=== PATIENT | male | born 1965 | race Caucasian/White ===

== ENCOUNTER 2017-07-12 07:58 | Inpatient (IN) | payer OTHER ==
[~2017-07-12] VITALS: Ht 188 cm; Wt 146.1 kg
[2017-07-12] MEDS ORDERED: MORPHINE SULFATE 2 MG/ML SYR IV STA (08:33)
[2017-07-12] MEDS ORDERED: ONDANSETRON HCL INJ 2 MG/ML VIAL IV STA (08:33)
[2017-07-12] MEDS ORDERED: SODIUM CHLORIDE 0.9% 1000ML 1,000 ML IV STA (08:33)
[2017-07-12] MEDS ORDERED: VANCOMYCIN 1GM/NS 250 ML 250 ML IV STA (08:33)
[2017-07-12] MEDS ORDERED: PIPER-TAZ 3.375 GM 50 ML IV STA (08:33)
--- NOTE | 2017-07-12 08:59 | Diagnostic Imaging Report ---
PROCEDURE: CHEST SINGLE (PORTABLE) COMPARISON: None. INDICATIONS: ABCESS ON BUTTOCKS FINDINGS: The lungs are well-inflated. No focal airspace consolidation, pleural effusion, or pneumothorax. Cardiomediastinal contour is within normal limits when accounting for portable, AP technique. No acute osseous abnormality. CONCLUSION: No acute cardiopulmonary abnormality. Dictated by: Denilson Aguirre M.D. on 07/12/2017 at 9:09 Electronically approved by: Denilson Aguirre M.D. on 07/12/2017 at 9:09
[2017-07-12 09:50] LABS: BASOPHILS # (AUTO) 0.1 (0.0-0.1); BASOPHILS % 0.6 % (0.0-1.0); EOSINOPHILS # (AUTO) 0.4 (0.0-0.4); HEMATOCRIT 38.4 % (38.2-49.6); HEMOGLOBIN 12.2 g/dL (14.0-18.0); LYMPHOCYTES # (AUTO) 1.4 (1.0-3.2); LYMPHOCYTES % 15.3 % (18.0-39.1); MEAN CORPUSCULAR HEMOGLOBIN 27.4 pg (28-32); MEAN CORPUSCULAR HGB CONC 31.8 g/dL (31-35); MEAN CORPUSCULAR VOLUME 86.1 fL (81-99); MONOCYTES # (AUTO) 0.9 (0.2-0.8); MONOCYTES % 9.7 % (4.4-11.3); NEUTROPHILS # (AUTO) 6.2 (2.1-6.9); NEUTROPHILS % 69.3 % (38.7-80.0); PLATELET COUNT 228 x10e3/uL (140-360); RED BLOOD COUNT 4.46 x10e6/uL (4.3-5.7); RED CELL DISTRIBUTION WIDTH 13.2 % (11.7-14.4)
[2017-07-12 09:53] LABS: INR 0.96; PROTHROMBIN TIME 13.3 seconds (11.9-14.5)
[2017-07-12 09:56] LABS: KETONES,URINE NEGATIVE (NEGATIVE); LEUKOCYTE ESTERASE ,URINE NEGATIVE (NEGATIVE); NITRITE,URINE NEGATIVE (NEGATIVE); PROTEIN,URINE DIPSTICK NEGATIVE (NEGATIVE); URINE UROBILINOGEN 0.2 mg/dL (0.2 - 1)
[2017-07-12 09:59] LABS: ALANINE AMINOTRANSFERASE 15 IU/L (0-55); ALBUMIN 2.9 g/dL (3.5-5.0); ALBUMIN/GLOBULIN RATIO 0.7 (0.8-2.0); ALKALINE PHOSPHATASE 60 IU/L (40-150); ANION GAP 10.9 mmol/L (8-16); BLOOD UREA NITROGEN 13 mg/dL (7-26); BUN/CREATININE RATIO 13 (6-25); CARBON DIOXIDE 25 mmol/L (22-29); CHLORIDE 106 mmol/L (98-107); CREATINE KINASE 77 IU/L (30-200); CREATININE, SERUM 0.97 mg/dL (0.72-1.25); EST GLOMERULAR FILTRATION RATE > 60 ML/MIN (60-); GLUCOSE 108 mg/dL (74-118); MAGNESIUM 1.6 MG/DL (1.3-2.1); POTASSIUM 3.9 mmol/L (3.5-5.1); SODIUM 138 mmol/L (136-145)
[2017-07-12 10:05] LABS: BILIRUBIN,URINE 1+ (NEGATIVE)
[2017-07-12] MEDS ORDERED: SODIUM CHLORIDE 0.9% 1000ML 1,000 ML IV SCH (10:10)
--- NOTE | 2017-07-12 10:22 | History and Physical ---
CHIEF COMPLAINT: Perianal pain. HISTORY OF PRESENT ILLNESS: This patient is 326 pounds and 74 inches with a BMI of 42, obese male admitted with a perirectal abscess complaining of pain and swelling of the perirectal area. The patient has a history of incision and drainage of perirectal abscess in the past and had at least 3 recurrences. PAST MEDICAL HISTORY: Has no history of hypertension, diabetes, epileptic convulsions, coronary artery disease, etc. PAST SURGICAL HISTORY: Remarkable for what has been stated. MEDICATIONS: He is not taking any medicines. ALLERGIES: HE HAS NO ALLERGIES. SOCIAL HISTORY: He does not smoke or drink. FAMILY HISTORY: Noncontributory. PHYSICAL EXAMINATION GENERAL: A 52-year-old male in mild distress complaining of perianal pain. He has some difficulties rolling over. HEENT: Unremarkable. The head is normocephalic. LUNGS: Clear. HEART: Regular sinus rhythm. ABDOMEN: Soft. RECTAL: Perirectal examination reveals tender, swollen inflammation in the perirectal area located at 5 o'clock with the patient in the prone position. There is some fluctuance there. There is an old healed scar. Full rectal examination was not done because of the severe pain. EXTREMITIES: No clubbing, cyanosis or edema. IMPRESSION: Recurrent perirectal abscess. PLAN: Rectal examination under anesthesia, incision and drainage of perirectal abscess, possible fistulotomy. Job#: [id number]
[2017-07-12 10:27] LABS: CLARITY,URINE CLEAR (CLEAR); COLOR,URINE YELLOW (YELLOW); EPITHELIAL CELLS,URINE RARE /LPF
[2017-07-12] MEDS ORDERED: ONDANSETRON HCL INJ 2 MG/ML VIAL IV PRN (10:30)
--- OUTSIDE RECORDS SUMMARY | 2017-07-12 10:39 | XMS REPORT ---
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 Allergies, Adverse Reactions, Alerts This patient has no known allergies or adverse reactions. Medications This patient has no known medications. Results Test Description Test Time Test Comments Text Results Atomic Results Result Comments CHEST SINGLE (PORTABLE) [place] [address] Patient Name: RENAY LUZ MR #: [id number] : 1965 Age/Sex: 52/M Req #: [id number] Adm Physician: Ordered by: ÁNGEL HDEZ MD Report #: [id number] Location: ER Room/Bed: Procedure: [id number] DX/CHEST SINGLE (PORTABLE) Exam Date: 07/12/17 Exam Time: 0845 REPORT STATUS: Signed PROCEDURE: CHEST SINGLE (PORTABLE) COMPARISON: None. INDICATIONS: ABCESS ON BUTTOCKS FINDINGS: The lungs are well-inflated. No focal airspace consolidation, pleural effusion, or pneumothorax. Cardiomediastinal contour is within normal limits when accounting for portable, AP technique. No acute osseous abnormality. CONCLUSION: No acute cardiopulmonary abnormality. Dictated by: Omayra Mcqueen M.D. on 07/12/2017 at 9:09 Electronically approved by: Omayra Mcqueen M.D. on 07/12/2017 at 9:09 Dictated By: OMAYRA MCQUEEN MD 8 Transcribed By: ERICKSON on 07/12/17908 COPY TO: ÁNGEL HDEZ MD
[2017-07-12 12:17] VITALS: BP 128/73
[2017-07-12 12:30] VITALS: BP 128/73
[2017-07-12] MEDS ORDERED: LIDOCAINE JELLY 2% 10ML URO-JET ONE (12:58)
[2017-07-12] MEDS ORDERED: HYDROGEN PEROXIDE 120 ML BTL ONE (12:59)
[2017-07-12] MEDS ORDERED: GELATIN SPONGE SZ 100 ONE (12:59)
[2017-07-12] MEDS ORDERED: METRONIDAZOLE 500MG/NS 100ML 200 ML IV ONE (14:22)
[2017-07-12 16:00] VITALS: BP 147/85
--- NOTE | 2017-07-12 16:45 | Operative Report ---
DATE OF PROCEDURE: July 12, 2017 PREOPERATIVE DIAGNOSIS: Recurrent perirectal abscess. POSTOPERATIVE DIAGNOSIS: Recurrent perirectal abscess. POSTOPERATIVE DIAGNOSIS: 1. Rectal examination under anesthesia. 2. Anoscopy. 3. Incision and drainage of perirectal abscess, recurrent. 4. Fistulotomy. ANESTHESIA: General endotracheal. ESTIMATED BLOOD LOSS: Minimal. DRAINS: None. COMPLICATIONS: None. INDICATIONS AND FINDINGS: This is a 325 pound, 74 inch male patient with a BMI of 41 admitted with perirectal abscess. The patient had several years ago incision and drainage of perirectal abscess and has had several recurrent bouts of infection. He was admitted on the day of admission from the emergency room with a perirectal abscess. INTRAOPERATIVE FINDINGS: The patient was in the lithotomy position and perirectal abscess located about the 10 o'clock position. There was a tract that was erected posteriorly in the intrasphincteric plane towards the midline with an internal opening that was located about 6 to 7 o'clock position. DESCRIPTION OF PROCEDURE: With the patient lying on the operative table in the supine position after administration of general anesthesia, he was prepped and draped for incision and drainage of perirectal abscess and possible fistulotomy. Prior to the prep rectal examination was performed and revealed no masses. After prepping and draping him, the perirectal abscess was located 10 o'clock position. The skin overlying perirectal abscess was excised in a circular fashion about the area of a dime. Cultures and sensitivities were taken of foul smelling pus with some blood. We went ahead at this point and identified a fistula tract that was followed up into the anal canal, the distal to the dentate line around 6 o'clock to 7 o'clock position. At this point, we went ahead and laid the tract open and cauterized the tract to destroy all the granulation tissue. The more posterior part of the tract was then over run with running 2-0 Vicryl because there was a large hemorrhoid in that area. After obtaining that hemostasis was absolute, the cavity was then irrigated with saline solution and packed with Gelfoam containing Xylocaine jelly 2%. The patient tolerated the procedure well and was taken to recovery room in stable condition. The was informed of intraoperative findings. They were both aware of the fact that this type of problem can always recur. Job#: [id number] GH
[2017-07-12] MEDS: HYDROCODONE/APAP 7.5MG-325MG 1 EA TAB PO PRN (17:10)
[2017-07-12] MEDS: PIPER-TAZ 3.375 GM 50 ML IV SCH (17:24)
[2017-07-12] MEDS: SODIUM CHLORIDE 0.9% 1000ML 1,000 ML IV SCH (17:24)
[2017-07-12] MEDS ORDERED: ONDANSETRON HCL INJ 2 MG/ML VIAL ONE (17:28)
[2017-07-12] MEDS ORDERED: PROPOFOL IV EMULSION 10 MG/ML 20 ML VIAL ONE (17:28)
[2017-07-12] MEDS ORDERED: DEXAMETHASONE SOD PHOS INJ 4 MG/ML VIAL ONE (17:28)
[2017-07-12] MEDS ORDERED: SEVOFLURANE INHAL SOLN 250 ML PEN BTL ONE (17:28)
[2017-07-12] MEDS ORDERED: LIDOCAINE HCL 2% LOCAL INJ 5 ML SDV VIAL INJ ONE (17:28)
[2017-07-12] MEDS ORDERED: MIDAZOLAM HCL 2 MG/2 ML VIAL ONE (17:47)
[2017-07-12] MEDS ORDERED: FENTANYL CITRATE/PF 100MCG/2 ML INJ ONE (17:47)
[2017-07-12] MEDS ORDERED: METRONIDAZOLE 500MG/NS 100ML 100 ML IV SCH (18:00)
[2017-07-12 18:07] VITALS: BP 147/85
[2017-07-12 20:00] VITALS: BP 141/69
[2017-07-12] MEDS: METRONIDAZOLE 500MG/NS 100ML 100 ML IV SCH (21:07)
[2017-07-12] MEDS: MORPHINE SULFATE 2 MG/ML SYR IV PRN (21:19)
[2017-07-13] VITALS (7 sets, daily range): BP systolic 100–117; BP diastolic 55–99
[2017-07-13] MEDS: PIPER-TAZ 3.375 GM 50 ML IV SCH ×4 (00:30→18:48)
[2017-07-13] MEDS: METRONIDAZOLE 500MG/NS 100ML 100 ML IV SCH ×4 (02:48→20:59)
[2017-07-13] MEDS: SODIUM CHLORIDE 0.9% 1000ML 1,000 ML IV SCH ×3 (05:00→21:00)
[2017-07-13] MEDS: HYDROCODONE/APAP 7.5MG-325MG 1 EA TAB PO PRN ×3 (05:51→15:40)
[2017-07-13] MEDS: MORPHINE SULFATE 2 MG/ML SYR IV PRN (22:38)
[2017-07-14] VITALS (7 sets, daily range): BP systolic 109–139; BP diastolic 56–84
[2017-07-14] MEDS: PIPER-TAZ 3.375 GM 50 ML IV SCH ×4 (00:27→17:20)
[2017-07-14] MEDS: SODIUM CHLORIDE 0.9% 1000ML 1,000 ML IV SCH ×2 (00:32→17:00)
[2017-07-14] MEDS: METRONIDAZOLE 500MG/NS 100ML 100 ML IV SCH ×4 (03:29→21:30)
[2017-07-14] MEDS: ONDANSETRON HCL INJ 2 MG/ML VIAL IV PRN ×2 (11:59→21:30)
[2017-07-14] MEDS ORDERED: DIPHENOXYLATE/ATROPINE TAB PO ONE (14:30)
[2017-07-14] MEDS: HYDROCODONE/APAP 7.5MG-325MG 1 EA TAB PO PRN ×2 (17:20→23:12)
[2017-07-14] MEDS: DIPHENOXYLATE/ATROPINE TAB PO SCH ×2 (17:20→21:30)
[2017-07-15] VITALS: BP 139/73
[2017-07-15] MEDS: PIPER-TAZ 3.375 GM 50 ML IV SCH ×3 (00:45→11:38)
[2017-07-15] MEDS: DIPHENOXYLATE/ATROPINE TAB PO SCH ×3 (02:39→09:49)
[2017-07-15] MEDS: METRONIDAZOLE 500MG/NS 100ML 100 ML IV SCH ×2 (02:40→08:17)
[2017-07-15] MEDS: SODIUM CHLORIDE 0.9% 1000ML 1,000 ML IV SCH (03:00)
[2017-07-15 04:00] VITALS: BP_SYST 102; BP_SYST 126; BP_DIAS 56; BP_DIAS 59
[2017-07-15 08:00] VITALS: BP 107/62
[2017-07-15] MEDS: ONDANSETRON HCL INJ 2 MG/ML VIAL IV PRN (08:17)
[2017-07-15 12:00] VITALS: BP 115/67
--- NOTE | 2017-07-15 12:48 | Discharge Summary ---
DISCHARGE DIAGNOSIS: Recurrent perirectal abscess. PROCEDURE PERFORMED: On July 12, 2017, incision and drainage of perirectal abscess. HISTORY OF PRESENT ILLNESS AND HOSPITALIZATION COURSE: A 326-pound 74-inch male who had a history of recurrent perirectal abscess admitted with a recurrence of perirectal abscess. The patient was taken to the operating room the day of admission and underwent incision and drainage of perirectal abscess with a fistulotomy. See operative report for greater details. Postoperative course was unremarkable. The patient was given intravenous antibiotics until the day of discharge. He was discharged home in afebrile and stable condition. The patient will be discharged home on Augmentin 500 mg p.o. t.i.d. for a week. He will be followed up at the office as an outpatient. The patient will be referred to GI once this wound has healed, to rule out the possibility of inflammatory bowel disease given his history of diarrhea in the past. He was advised to avoid excessive loose bowel movements and diarrhea and take Imodium A-D p.r.n. to solidify his stools. MARCO A MUSTAFA MD Job#: [id number] EV
== END 2017-07-15 13:00 | disposition home or self-care (01) | DRG 333 ==
LOC: ER 07:58 → ERHOLD 10:36 → IMCU 11:41 → OBSVTOIN 15:00 → MED/SURG2 15:55
PROVIDERS: ADMIT Surgery; ATTEND Surgery
PROC: 0DBP0ZZ Excision of Rectum, Open Approach (ICD-10-PCS; 2017-07-12)
PROC: 0DBQ0ZZ Excision of Anus, Open Approach (ICD-10-PCS; principal; 2017-07-12 12:30)
DX: K61.2 Anorectal abscess (principal); Z68.41 Body mass index [BMI] 40.0-44.9, adult; I10 Essential (primary) hypertension; K64.9 Unspecified hemorrhoids; E11.9 Type 2 diabetes mellitus without complications; Z79.4 Long term (current) use of insulin; G40.909 Epilepsy, unspecified, not intractable, without status epilepticus; I25.10 Atherosclerotic heart disease of native coronary artery without angina pectoris; E66.9 Obesity, unspecified
CPT/HCPCS: 36415; 71045; 72170; 80053; 81001; 82550; 82553; 82948; 83735; 84484; 85025; 85610; 85730; 87040; 87071; 87075; 87086; 87186; 87205; 93005; 99284; J1100; J2001; J2250; J2270; J2405; J2543; J3370; J7030

== ENCOUNTER 2017-10-08 20:21 | Emergency (ER) | payer OTHER ==
[~2017-10-08] VITALS: Ht 188 cm; Wt 146.1 kg
--- OUTSIDE RECORDS SUMMARY | 2017-10-08 20:22 | XMS REPORT | Continuity of Care Document ---
Author Author [facility] Organization [facility] Address [address] [place] [address] Phone Unavailable Care Team Providers Care Header Dock Name Role Phone NO, PCP PCP Unavailable Insurance Providers Guarantor Renay Luz Address [address] [place] [address] Email [email or web address] Payer [employer] Policy Number [id number] Subscriber's Name SantiagoRenay arreola Relationship 18 Self / Same As Patient Group Number [id number] Group Name [employer] Effective Date 17 Advance Directives Directive Response Recorded Date/Time Does the patient have an advance directive? No 07/12/17 12:17pm If yes, is advance directive on file with [facility]? No 07/12/17 12:17pm If not on file with [facility] will patient provide a copy? No 07/12/17 12:17pm Do you have a Directive to Physician? No 07/12/17 9:06am Do you have a Medical Power of Certification Engineer? No 07/12/17 9:06am Do you have an out of hospital Do Not Resuscitate Order? No 07/12/17 9:06am Do you have any special needs we should be aware of? No 07/12/17 9:06am Do you have a support person here with you today? Yes 07/12/17 9:06am Did patient receive Notice of Privacy Practices? Yes 07/12/17 9:06am Did patient receive patient rights and responsibilities? Yes 07/12/17 9:06am Problems Medical Problem Onset Date Status Perirectal abscess Unknown Medications No known medications. Social History Social History Problem Response Recorded Date/Time Onset Date Status Hx Psychiatric Problems No 07/12/2017 12:17pm Not Applicable Not Applicable Smoking Status Start Date Stop Date Former smoker Hospital Discharge Instructions No hospital discharge instruction information available. Plan of Care Discharge Date 07/15/17 1:00pm Disposition HOME, SELF-CARE Instructions/Education Provided Skin Abscess Rash - Nonspecific Prescriptions See Medication Section Additional Instructions/Education CONTINUE DIET AND ACTIVITY TOLERATED FOLLOW UP WITH PRIMARY CARE IN 1-2 WEEKS FOLLOW UP WITH INSTRUCTED LISSETH ROSS Functional Status Query Response Date Recorded Assistive Devices None July 12, 2017 12:17pm Ambulation Ability Independent July 12, 2017 12:17pm Toileting Ability Independent July 15, 2017 12:00pm Allergies, Adverse Reactions, Alerts No known allergies. Immunizations No immunization information available. Vital Signs Acute Vital Signs Vital Response Date/Time Temperature (Fahrenheit) 97.4 degrees F (97.6 - 99.5) 07/15/2017 12:00pm Pulse Pulse Rate (adult) 61 bpm (60 - 90) 07/15/2017 12:00pm Respiratory Rate 20 bpm (12 - 24) 07/15/2017 12:00pm Blood Pressure 115/67 mm Hg 07/15/2017 12:00pm Height 6 ft 2 in 07/12/2017 8:08am Weight 322 lb 07/12/2017 12:17pm Body Mass Index 41.3 kg/m^2 07/12/2017 12:31pm Results Laboratory Results Test Name Result Units Flags Reference Collection Date/Time Result Date/ Time Comments White Blood Count 8.95 x10e3/uL 4.8-10.8 07/12/2017 9:10am 07/12/2017 9 :53am Red Blood Count 4.46 x10e6/uL 4.3-5.7 07/12/2017 9:10am 07/12/2017 9: 53am Hemoglobin 12.2 g/dL L 14.0-18.0 07/12/2017 9:07/12/2017 9:53am Hematocrit 38.4 % 38.2-49.6 07/12/2017 9:07/12/2017 9:53am Mean Corpuscular Volume 86.1 fL 81-99 07/12/2017 9:07/12/2017 9: 53am Mean Corpuscular Hemoglobin 27.4 pg L 28-32 07/12/2017 9:2017 9:53am Mean Corpuscular Hemoglobin Concent 31.8 g/dL 31-35 07/12/2017 9:07/12/2017 9:53am Red Cell Distribution Width 13.2 % 11.7-14.4 07/12/2017 9:2017 9:53am Platelet Count 228 x10e3/uL 140-360 07/12/2017 9:07/12/2017 9: 53am Neutrophils (%) (Auto) 69.3 % 38.7-80.0 07/12/2017 9:07/12/2017 9: 53am Lymphocytes (%) (Auto) 15.3 % L 18.0-39.1 07/12/2017 9:07/12/2017 9 :53am Monocytes (%) (Auto) 9.7 % 4.4-11.3 07/12/2017 9:07/12/2017 9: 53am Eosinophils (%) (Auto) 4.0 % 0.0-6.0 07/12/2017 9:07/12/2017 9: 53am Basophils (%) (Auto) 0.6 % 0.0-1.0 07/12/2017 9:07/12/2017 9:53am IM GRANULOCYTES % 1.1 % H 0.0-1.0 07/12/2017 9:07/12/2017 9:53am Neutrophils # (Auto) 6.2 2.1-6.9 07/12/2017 9:07/12/2017 9:53am Lymphocytes # (Auto) 1.4 1.0-3.2 07/12/2017 9:07/12/2017 9:53am Monocytes # (Auto) 0.9 H 0.2-0.8 07/12/2017 9:10am 07/12/2017 9:53am Eosinophils # (Auto) 0.4 0.0-0.4 07/12/2017 9:10am 07/12/2017 9:53am Basophils # (Auto) 0.1 0.0-0.1 07/12/2017 9:10am 07/12/2017 9:53am Absolute Immature Granulocyte (auto 0.10 x10e3/uL 0-0.1 07/12/2017 9: 10am 07/12/2017 9:53am Prothrombin Time 13.3 seconds 11.9-14.5 07/12/2017 9:10am 07/12/2017 9: 54am Prothromb Time International Ratio 0.96 07/12/2017 9:10am 2017 9:54am Oral Anticoagulant Therapy INR Values: 1. Low Intensity Therapy 1.5 - 2.0 2. Moderate Intensity Therapy 2.0 - 3.0 3. High Intensity Therapy(1) 2.5 - 3.5 4. High Intensity Therapy(2) 3.0 - 4.0 5. Panic Value INR > 5.0 Activated Partial Thromboplast Time 32.0 seconds 23.8-35.5 07/12/2017 9: 10am 07/12/2017 9:54am Urine Color YELLOW YELLOW 07/12/2017 9:25am 07/12/2017 10:27am Urine Clarity CLEAR CLEAR 07/12/2017 9:25am 07/12/2017 10:27am Urine Specific [place] 1.015 1.010-1.025 07/12/2017 9:25am 2017 10:05am Urine pH 5 5 - 7 07/12/2017 9:25am 07/12/2017 10:05am Urine Leukocyte Esterase NEGATIVE NEGATIVE 07/12/2017 9:25am 2017 10:05am Urine Nitrite NEGATIVE NEGATIVE 07/12/2017 9:25am 07/12/2017 10:05am Urine Protein NEGATIVE NEGATIVE 07/12/2017 9:25am 07/12/2017 10:05am Urine Glucose (UA) NEGATIVE NEGATIVE 07/12/2017 9:25am 07/12/2017 10: 05am Urine Ketones NEGATIVE NEGATIVE 07/12/2017 9:25am 07/12/2017 10:05am Urine Urobilinogen 0.2 mg/dL 0.2 - 1 07/12/2017 9:25am 07/12/2017 10: 05am Urine Bilirubin 1+ H NEGATIVE 07/12/2017 9:25am 07/12/2017 10:05am Confirmatory test currently unavailable. False positive results may occur. Urine Blood NEGATIVE NEGATIVE 07/12/2017 9:25am 07/12/2017 10:05am Urine WBC NONE /HPF 0-5 07/12/2017 9:25am 07/12/2017 10:27am Urine RBC NONE /HPF 0-5 07/12/2017 9:25am 07/12/2017 10:27am Urine Bacteria NONE /HPF NONE 07/12/2017 9:25am 07/12/2017 10:27am Urine Epithelial Cells RARE /LPF NONE 07/12/2017 9:25am 07/12/2017 10: 27am Sodium Level 138 mmol/L 136-145 07/12/2017 9:10a07/12/2017 9:59am Potassium Level 3.9 mmol/L 3.5-5.1 07/12/2017 9:10a07/12/2017 9:59am Chloride Level 106 mmol/L 98-107 07/12/2017 9:10am 07/12/2017 9:59am Carbon Dioxide Level 25 mmol/L 22-29 07/12/2017 9:10a07/12/2017 9: 59am Anion Gap 10.9 mmol/L 8-16 07/12/2017 9:10a07/12/2017 9:59am Blood Urea Nitrogen 13 mg/dL 7-07/12/2017 9:10a07/12/2017 9:59am Creatinine 0.97 mg/dL 0.72-1.25 07/12/2017 9:10a07/12/2017 9:59am BUN/Creatinine Ratio 13 6-25 07/12/2017 9:10a07/12/2017 9:59am Estimat Glomerular Filtration Rate > 60 ML/MIN 60- 07/12/2017 9:10a 9:59am Ranges were taken from the National Kidney Disease Education Program and the National Kid[employer] Foundation literature. Reference ranges: 60 or greater: Normal 16-59 (for 3 consecutive months): Chronic kidney disease 15 or less: Kidney failure Glucose Level 108 mg/dL 74-118 07/12/2017 9:07/12/2017 9:59am Calcium Level 8.0 mg/dL L 8.4-10.2 07/12/2017 9:07/12/2017 9:59am Magnesium Level 1.6 MG/DL 1.3-2.1 07/12/2017 9:07/12/2017 9:59am Total Bilirubin 0.8 mg/dL 0.2-1.2 07/12/2017 9:07/12/2017 9:59am Aspartate Amino Transf (AST/SGOT) 10 IU/L 5-34 07/12/2017 9:2017 9:59am Alanine Aminotransferase (ALT/SGPT) 15 IU/L 0-55 07/12/2017 9:02/2018 9:59am Total Protein 6.8 g/dL 6.5-8.1 07/12/2017 9:07/12/2017 9:59am Albumin 2.9 g/dL L 3.5-5.0 07/12/2017 9:07/12/2017 9:59am Globulin 3.9 g/dL H 2.3-3.5 07/12/2017 9:07/12/2017 9:59am Albumin/Globulin Ratio 0.7 L 0.8-2.0 07/12/2017 9:07/12/2017 9: 59am Alkaline Phosphatase 60 IU/L 40-150 07/12/2017 9:07/12/2017 9: 59am Creatine Kinase 77 IU/L 30-200 07/12/2017 9:07/12/2017 9:59am Creatine Kinase MB 0.90 ng/mL 0.00-5.00 07/12/2017 9:07/12/2017 10 :16am Troponin I < 0.001 ng/mL 0-0.300 07/12/2017 9:07/12/2017 10:16am Microbiology Results Procedure Source Organism/Result Collection Date/Time Result Date/Time Result Status Blood Culture Blood NO GROWTH AFTER 72 HOURS 9:25am 07/15/2017 9:38am Preliminary Wound Culture Buttock ENTEROCOCCUS SPECIES 07/12/2017 2:09pm 07/14/2017 8: 12am Preliminary ESCHERICHIA COLI 07/12/2017 2:09pm 07/14/2017 8:12am Preliminary STREPTOCOCCUS GROUP F 07/12/2017 2:09pm 07/14/2017 8:12am Preliminary Procedures Procedure Status Date Provider(s) Incision and drainage Completed 07/12/17 MARCO A MUSTAFA MD Encounters Encounter Location Arrival/Admit Date Discharge/Depart Date Attending Provider Discharged Inpatient [facility] 07/12/17 3:00pm 07/15/17 1:00pm MARCO A MUSTAFA MD
[2017-10-08] MEDS ORDERED: PANTOPRAZOLE 40 MG 10ML VIAL IV STA (20:48)
[2017-10-08] MEDS ORDERED: KETOROLAC TROMETHAMINE 30 MG/ML VIAL IV STA (20:48)
[2017-10-08] MEDS ORDERED: DICYCLOMINE HCL 20 MG/2 ML VIAL IM ONE (21:00)
[2017-10-08] MEDS ORDERED: ONDANSETRON HCL 4 MG ORAL DISINTEGRATING TAB PO ONE (21:00)
[2017-10-08 21:43] LABS: BASOPHILS # (AUTO) 0.1 (0.0-0.1); BASOPHILS % 0.8 % (0.0-1.0); EOSINOPHILS # (AUTO) 0.2 (0.0-0.4); EOSINOPHILS % 2.3 % (0.0-6.0); HEMATOCRIT 40.7 % (38.2-49.6); HEMOGLOBIN 13.1 g/dL (14.0-18.0); LYMPHOCYTES # (AUTO) 1.8 (1.0-3.2); LYMPHOCYTES % 19.2 % (18.0-39.1); MEAN CORPUSCULAR HEMOGLOBIN 27.1 pg (28-32); MEAN CORPUSCULAR HGB CONC 32.2 g/dL (31-35); MEAN CORPUSCULAR VOLUME 84.3 fL (81-99); MONOCYTES # (AUTO) 0.6 (0.2-0.8); MONOCYTES % 6.4 % (4.4-11.3); NEUTROPHILS # (AUTO) 6.5 (2.1-6.9); NEUTROPHILS % 70.6 % (38.7-80.0); PLATELET COUNT 286 x10e3/uL (140-360); RED BLOOD COUNT 4.83 x10e6/uL (4.3-5.7); RED CELL DISTRIBUTION WIDTH 13.2 % (11.7-14.4)
[2017-10-08 21:50] LABS: BILIRUBIN,URINE NEGATIVE (NEGATIVE); CLARITY,URINE CLEAR (CLEAR); COLOR,URINE YELLOW (YELLOW); KETONES,URINE NEGATIVE (NEGATIVE); LEUKOCYTE ESTERASE ,URINE NEGATIVE (NEGATIVE); NITRITE,URINE NEGATIVE (NEGATIVE); PROTEIN,URINE DIPSTICK TRACE (NEGATIVE); URINE UROBILINOGEN 0.2 mg/dL (0.2 - 1)
[2017-10-08 22:01] LABS: ALANINE AMINOTRANSFERASE 18 IU/L (0-55); ALBUMIN 3.1 g/dL (3.5-5.0); ALBUMIN/GLOBULIN RATIO 0.8 (0.8-2.0); ALKALINE PHOSPHATASE 66 IU/L (40-150); AMYLASE 71 U/L (25-125); ANION GAP 13.3 mmol/L (8-16); BLOOD UREA NITROGEN 18 mg/dL (7-26); BUN/CREATININE RATIO 15 (6-25); CALCIUM 8.5 mg/dL (8.4-10.2); CARBON DIOXIDE 24 mmol/L (22-29); CHLORIDE 106 mmol/L (98-107); CREATINE KINASE 202 IU/L (30-200); EST GLOMERULAR FILTRATION RATE > 60 ML/MIN (60-); GLUCOSE 131 mg/dL (74-118); LIPASE 29 U/L (8-78); POTASSIUM 4.3 mmol/L (3.5-5.1); SODIUM 139 mmol/L (136-145)
[2017-10-08 22:03] LABS: RBC,URINE 0-5 /HPF (0-5); WBC,URINE (MAN) 0-5 /HPF (0-5)
[2017-10-08 22:04] LABS: MUCUS,URINE MANY (RARE)
--- NOTE | 2017-10-08 23:50 | Diagnostic Imaging Report ---
EXAM: US GALLBLADDER DATE: 10/08/2017 12:00 AM INDICATION: , COMPARISON: None TECHNIQUE: Transverse and longitudinal callahan scale and color doppler sonographic images of the upper abdomen were obtained. FINDINGS: Study is somewhat degraded by overlying bowel gas. LIVER 18 cm in the right midclavicular line. Increased echogenicity, normal contour, no masses. GALLBLADDER Cholelithiasis (largest 2.8 cm) without wall-thickening or pericholecystic fluid. Negative sonographic Hendricks's sign. BILE DUCTS No intra nor extra-hepatic biliary dilation. Common bile duct measures 0.5 cm PANCREAS: Not seen due to overlying bowel gas RIGHT KIDNEY: 11.0 cm Echogenicity: Normal Collecting System: No hydronephrosis Stones: None Cyst/Mass: None VESSELS: Aorta: Visualized portions are within normal size limits Inferior Vena Cava: Visualized portions are normal Main Portal Vein: 1.0 cm, normal size with hepatopetal flow. FREE FLUID: None IMPRESSION: 1. Cholelithiasis without evidence of acute cholecystitis. 2. Hepatic steatosis with hepatomegaly. Signed by: Dr Josiane Moody MD on 10/08/2017 11:46 PM
== END 2017-10-09 00:22 | disposition home or self-care (01) ==
LOC: ER 20:21
CPT/HCPCS: 36415; 76705; 80053; 81001; 82150; 82550; 82553; 83690; 84484; 85025; 96372; 96374; 96376; 99284; J0500; J1885

== ENCOUNTER → 2017-10-18 | Day surgery (SDC) | payer OTHER ==
[~2017-10-18] MED LIST: ACETAMINOPHEN 1000 MG/100 ML 100 ML IV ONE; BUPIVACAINE 0.25%/EPI 30ML SDV INJ ONE; CEFAZOLIN SOD 1 GM VIAL ONE; DEXAMETHASONE SOD PHOS INJ 4 MG/ML VIAL ONE; EPHEDRINE SULFATE INJ 50 MG/10 ML SYR ONE; FENTANYL CITRATE/PF 100MCG/2 ML INJ ONE; GLYCOPYRROLATE INJ 1MG/ 5 ML SYR ONE; HYDROGEN PEROXIDE 120 ML BTL ONE; KETOROLAC TROMETHAMINE 30 MG/ML VIAL ONE; LIDOCAINE HCL 2% LOCAL INJ 5 ML SDV VIAL INJ ONE; MIDAZOLAM HCL 2 MG/2 ML VIAL ONE; MORPHINE SULFATE INJ 10 MG/ML ONE; NEOSTIGMINE 5 MG/5ML SYR ONE; ONDANSETRON HCL INJ 2 MG/ML VIAL ONE; PROPOFOL IV EMULSION 10 MG/ML 20 ML VIAL ONE; ROCURONIUM BROMIDE 10 MG/ML 5ML VIAL ONE; SEVOFLURANE INHAL SOLN 250 ML PEN BTL ONE
--- OUTSIDE RECORDS SUMMARY | 2017-10-18 08:14 | XMS REPORT | Continuity of Care Document ---
Author Author [facility] Organization [facility] Address [address] [place] [address] Phone Unavailable Care Team Providers Care Lumber Carrier Name Role Phone NO, PCP PCP Unavailable Insurance Providers Guarantor Renay Luz Address [address] [place] [address] Email [email or web address] Pos Policy Number [id number] Subscriber's Name KrisRenay watson Relationship 18 Self / Same As Patient Group Number [id number] Group Name [employer] Effective Date 17 Advance Directives Directive Response Recorded Date/Time Does the patient have an advance directive? No 07/12/17 12:17pm If yes, is advance directive on file with [facility]? No 07/12/17 12:17pm If not on file with [facility] will patient provide a copy? No 07/12/17 12:17pm Do you have a Directive to Physician? No 10/08/17 8:37pm Do you have a Medical Power of Wire Rope Sling Maker? No 10/08/17 8:37pm Do you have an out of hospital Do Not Resuscitate Order? No 10/08/17 8:37pm Do you have any special needs we should be aware of? No 10/08/17 8:37pm Do you have a support person here with you today? Yes 10/08/17 8:37pm Did patient receive Notice of Privacy Practices? Yes 10/08/17 8:37pm Did patient receive patient rights and responsibilities? Yes 10/08/17 8:37pm Problems Medical Problem Onset Date Status Perirectal abscess Unknown Medications No known medications. Social History Social History Problem Response Recorded Date/Time Onset Date Status Hx Psychiatric Problems No 07/12/2017 12:17pm Not Applicable Not Applicable Smoking Status Start Date Stop Date Never Smoker Hospital Discharge Instructions No hospital discharge instruction information available. Plan of Care Discharge Date 10/09/17 12:22am Disposition HOME, SELF-CARE Condition at Discharge Stable Instructions/Education Provided [place] Diet - Adult Cholelithiasis Forms Provided Work/School Excuse Prescriptions See Medication Section Referrals JEREMÍAS MUSTAFA MD Order Date: Call for an appointment Address: [address] [place] [id number] Additional Instructions/Education TAKE MEDS DIRECTED FOLLOW UP WITH SURGERY RETURN TO THE ER NEEDED Functional Status No functional status information available. Allergies, Adverse Reactions, Alerts No known allergies. Immunizations No immunization information available. Vital Signs Acute Vital Signs Vital Response Date/Time Temperature (Fahrenheit) 97.4 degrees F (97.6 - 99.5) 07/15/2017 12:00pm Pulse Pulse Rate (adult) 61 bpm (60 - 90) 07/15/2017 12:00pm Respiratory Rate 20 bpm (12 - 24) 07/15/2017 12:00pm Blood Pressure 115/67 mm Hg 07/15/2017 12:00pm Height 6 ft 2 in 10/08/2017 8:47pm Weight 322 lb 10/08/2017 8:47pm Body Mass Index 41.3 kg/m^2 10/08/2017 8:47pm Results Laboratory Results Test Name Result Units Flags Reference Collection Date/Time Result Date/ Time Comments Prothrombin Time 13.3 seconds 11.9-14.5 07/12/2017 9:10am [...] seconds 23.8-35.5 07/12/2017 9: 10am 07/12/2017 9:54am Bedside Glucose 119 mg/dL 70-120 07/22/2017 7:40pm 07/23/2017 6:28am Meter ID: [id number] Magnesium Level 1.6 MG/DL 1.3-2.1 07/12/2017 9:10am 07/12/2017 9:59am White Blood Count 9.23 x10e3/uL 4.8-10.8 10/08/2017 8:59pm 10/08/2017 9 :45pm Red Blood Count 4.83 x10e6/uL 4.3-5.7 10/08/2017 8:59pm 10/08/2017 9: 45pm Hemoglobin 13.1 g/dL L 14.0-18.0 10/08/2017 8:59pm 10/08/2017 9:45pm Hematocrit 40.7 % 38.2-49.6 10/08/2017 8:59pm 10/08/2017 9:45pm Mean Corpuscular Volume 84.3 fL 81-99 10/08/2017 8:59pm 10/08/2017 9: 45pm Mean Corpuscular Hemoglobin 27.1 pg L 28-32 10/08/2017 8:59pm 2017 9:45pm Mean Corpuscular Hemoglobin Concent 32.2 g/dL 31-35 10/08/2017 8:59pm 10/08/2017 9:45pm Red Cell Distribution Width 13.2 % 11.7-14.4 10/08/2017 8:59pm 2017 9:45pm Platelet Count 286 x10e3/uL 140-360 10/08/2017 8:59pm 10/08/2017 9: 45pm Neutrophils (%) (Auto) 70.6 % 38.7-80.0 10/08/2017 8:59pm 10/08/2017 9: 45pm Lymphocytes (%) (Auto) 19.2 % 18.0-39.1 10/08/2017 8:59pm 10/08/2017 9: 45pm Monocytes (%) (Auto) 6.4 % 4.4-11.3 10/08/2017 8:59pm 10/08/2017 9: 45pm Eosinophils (%) (Auto) 2.3 % 0.0-6.0 10/08/2017 8:59pm 10/08/2017 9: 45pm Basophils (%) (Auto) 0.8 % 0.0-1.0 10/08/2017 8:59pm 10/08/2017 9:45pm IM GRANULOCYTES % 0.7 % 0.0-1.0 10/08/2017 8:59pm 10/08/2017 9:45pm Neutrophils # (Auto) 6.5 2.1-6.9 10/08/2017 8:59pm 10/08/2017 9:45pm Lymphocytes # (Auto) 1.8 1.0-3.2 10/08/2017 8:59pm 10/08/2017 9:45pm Monocytes # (Auto) 0.6 0.2-0.8 10/08/2017 8:59pm 10/08/2017 9:45pm Eosinophils # (Auto) 0.2 0.0-0.4 10/08/2017 8:59pm 10/08/2017 9:45pm Basophils # (Auto) 0.1 0.0-0.1 10/08/2017 8:59pm 10/08/2017 9:45pm Absolute Immature Granulocyte (auto 0.06 x10e3/uL 0-0.1 10/08/2017 8: 59pm 10/08/2017 9:45pm Urine Color YELLOW YELLOW 10/08/2017 8:59pm 10/08/2017 9:50pm Urine Clarity CLEAR CLEAR 10/08/2017 8:59pm 10/08/2017 9:50pm Urine Specific [place] 1.030 H 1.010-1.025 10/08/2017 8:59pm 2017 9:50pm Urine pH 5 5 - 7 10/08/2017 8:59pm 10/08/2017 9:50pm Urine Leukocyte Esterase NEGATIVE NEGATIVE 10/08/2017 8:59pm 2017 9:50pm Urine Nitrite NEGATIVE NEGATIVE 10/08/2017 8:59pm 10/08/2017 9:50pm Urine Protein TRACE H NEGATIVE 10/08/2017 8:59pm 10/08/2017 9:50pm Urine Glucose (UA) NEGATIVE NEGATIVE 10/08/2017 8:59pm 10/08/2017 9: 50pm Urine Ketones NEGATIVE NEGATIVE 10/08/2017 8:59pm 10/08/2017 9:50pm Urine Urobilinogen 0.2 mg/dL 0.2 - 1 10/08/2017 8:59pm 10/08/2017 9: 50pm Urine Bilirubin NEGATIVE NEGATIVE 10/08/2017 8:59pm 10/08/2017 9: 50pm Urine Blood NEGATIVE NEGATIVE 10/08/2017 8:59pm 10/08/2017 9:50pm Urine WBC 0-5 /HPF 0-5 10/08/2017 8:59pm 10/08/2017 10:04pm Urine RBC 0-5 /HPF 0-5 10/08/2017 8:59pm 10/08/2017 10:04pm Urine Bacteria NONE /HPF NONE 10/08/2017 8:59pm 10/08/2017 10:04pm Urine Epithelial Cells NONE /LPF NONE 10/08/2017 8:59pm 10/08/2017 10: 04pm Urine Mucus MANY H RARE 10/08/2017 8:59pm 10/08/2017 10:04pm Sodium Level 139 mmol/L 136-145 10/08/2017 8:59pm 10/08/2017 10:02pm Potassium Level 4.3 mmol/L 3.5-5.1 10/08/2017 8:59pm 10/08/2017 10: 02pm Chloride Level 106 mmol/L 98-107 10/08/2017 8:59pm 10/08/2017 10:02pm Carbon Dioxide Level 24 mmol/L 22-29 10/08/2017 8:59pm 10/08/2017 10: 02pm Anion Gap 13.3 mmol/L 8-16 10/08/2017 8:59pm 10/08/2017 10:02pm Blood Urea Nitrogen 18 mg/dL 7-10/08/2017 8:59pm 10/08/2017 10:02pm Creatinine 1.20 mg/dL 0.72-1.25 10/08/2017 8:59pm 10/08/2017 10:02pm BUN/Creatinine Ratio 15 6-10/08/2017 8:59pm 10/08/2017 10:02pm Estimat Glomerular Filtration Rate > 60 ML/MIN 60- 10/08/2017 8:59pm 10:02pm Ranges were taken from the National Kidney Disease Education Program and the National Kid[employer] Foundation literature. Reference ranges: 60 or greater: Normal 16-59 (for 3 consecutive months): Chronic kidney disease 15 or less: Kidney failure Glucose Level 131 mg/dL H 74-118 10/08/2017 8:59pm 10/08/2017 10:02pm Calcium Level 8.5 mg/dL 8.4-10.2 10/08/2017 8:59pm 10/08/2017 10:02pm Total Bilirubin 0.5 mg/dL 0.2-1.2 10/08/2017 8:59pm 10/08/2017 10:02pm Aspartate Amino Transf (AST/SGOT) 12 IU/L 5-34 10/08/2017 8:59pm 2017 10:02pm Alanine Aminotransferase (ALT/SGPT) 18 IU/L 0-55 10/08/2017 8:59pm 01/2018 10:02pm Total Protein 7.2 g/dL 6.5-8.1 10/08/2017 8:59pm 10/08/2017 10:02pm Albumin 3.1 g/dL L 3.5-5.0 10/08/2017 8:59pm 10/08/2017 10:02pm Globulin 4.1 g/dL H 2.3-3.5 10/08/2017 8:59pm 10/08/2017 10:02pm Albumin/Globulin Ratio 0.8 0.8-2.0 10/08/2017 8:59pm 10/08/2017 10: 02pm Alkaline Phosphatase 66 IU/L 40-150 10/08/2017 8:59pm 10/08/2017 10: 02pm Creatine Kinase 202 IU/L H 30-200 10/08/2017 8:59pm 10/08/2017 10:02pm Creatine Kinase MB 3.40 ng/mL 0-5.0 10/08/2017 8:59pm 10/08/2017 10: 09pm Troponin I < 0.001 ng/mL 0-0.300 10/08/2017 8:59pm 10/08/2017 10:09pm Amylase Level 71 U/L 25-125 10/08/2017 8:59pm 10/08/2017 10:02pm Lipase 29 U/L 8-78 10/08/2017 8:59pm 10/08/2017 10:02pm Microbiology Results Procedure Source Organism/Result Collection Date/Time Result Date/Time Result Status Blood Culture Blood NO GROWTH AFTER 5 DAYS, FINAL REPORT 07/12/2017 9:25am 07/17/2017 9:38am Final Wound Culture Buttock ENTEROCOCCUS FAECALIS 07/12/2017 2:09pm 07/15/2017 2 :01pm Final ESCHERICHIA COLI 07/12/2017 2:09pm 07/15/2017 2:01pm Final STREPTOCOCCUS GROUP F 07/12/2017 2:09pm 07/15/2017 2:01pm Final Procedures Procedure Status Date Provider(s) EXCISION OF ANUS, OPEN APPROACH Completed 07/12/17 JEREMÍAS MUSTAFA MD EXCISION OF RECTUM, OPEN APPROACH Completed 07/12/17 JEREMÍAS MUSTAFA MD US gallbladder Active 10/08/17 ASHIA SANTOS MD Encounters Encounter Location Arrival/Admit Date Discharge/Depart Date Attending Provider Departed Emergency Room [facility] 10/08/17 8:21pm 12:22am ASHIA SANTOS MD Discharged Inpatient [facility] 07/12/17 3:00pm 07/15/17 1:00pm MARCO A MUSTAFA MD
--- NOTE | 2017-10-18 13:24 | Operative Report ---
DATE OF PROCEDURE: October 18, 2017 PREOPERATIVE DIAGNOSIS: Cholelithiasis, acute cholecystitis. POSTOPERATIVE DIAGNOSIS: Cholelithiasis, acute cholecystitis. PROCEDURE PERFORMED: Laparoscopic cholecystectomy. SURGEON: Tevin Rooney MD. ANESTHESIA: General endotracheal. ESTIMATED BLOOD LOSS: Minimal. DRAINS: 10 mm flat Keyon-Coleman drains. COMPLICATIONS: None. INDICATIONS AND FINDINGS: The patient is a morbidly obese male about 312 pounds, BMI of about 41, admitted for cholecystectomy. Several days ago he had a visit in the emergency room because of right upper quadrant pain. He was diagnosed with cholelithiasis, cholecystitis. The patient was discharged home to follow up with us. Ultrasound revealed gallstones, a large stone, no ductal dilatation. Liver chemistries were normal. INTRAOPERATIVE FINDINGS: Cholelithiasis with subacute cholecystitis and a large a gallstone in the neck of the gallbladder. There was no ductal dilatation. The cystic duct, common bile duct junction was identified and carefully preserving the common bile duct. At the end of the case there was no evidence of bile leak, bleeding or apparent bowel injury. We went ahead and left a Keyon-Coleman drain to drain the gallbladder bed fossa. DESCRIPTION OF PROCEDURE: With the patient lying on the operative table in supine position after the administration of general anesthesia, he was prepped and draped for laparoscopic cholecystectomy. The procedure was begun by establishing a pneumoperitoneum in the right upper quadrant mid clavicular line because of the large size of the patient. A pneumoperitoneum was insufflated to 15 mm of pressure and then the 5 mm trocar placed in that location. The camera introduced. Under direct vision with a camera we placed a 10/11 umbilical trocar and then placed the camera there. Then under direct vision we placed a 10 mm subxiphoid port also. Two lateral working ports were placed in the right upper area in the right midclavicular line and right anterior axillary line. A 5th trocar was placed in the left upper quadrant to allow exposure of the hepatoduodenal ligament given the large size of the patient. After we obtained adequate exposure of the gallbladder, it contained bile and it had a thickened gallbladder wall and also had adhesions of omentum to it. We dissected the adhesions of the omentum to the gallbladder and then began the dissection on the neck of the gallbladder after traction of the fundus of the gallbladder superiorly and the neck inferiorly and laterally. We began by identifying the cystic duct close to the neck of the gallbladder and then we traced it until we saw the junction with the common bile duct. We also identified the cystic artery posterior to the cystic duct. At that point then we clipped the cystic duct 3 times distally, once proximally and transected it. The same thing was performed with the cystic artery. Then we took down the gallbladder using electrocautery dissection and cautery. There was some minor oozing coming from the gallbladder bed fossa and this was cauterized. We then placed the gallbladder in an Endo bag and removed it through the umbilical port site after we placed it in an Endo bag. After we did that, we closed the umbilical fascia with three 1 Vicryl stitches due to the large size of the patient. At this point we reinstated the pneumoperitoneum, inspected the operative field which appeared to be fairly dry. We went ahead and placed a Keyon-Coleman drain to drain the gallbladder bed fossa, brought it out through the right anterior axillary line trocar. Secured it there with a 2-0 silk connected to self suction. Then we released the pneumoperitoneum, closed and tied the umbilical fascia sutures and infiltrated the fascia with 0.25% Marcaine with epinephrine. We then closed the umbilical port site after irrigation with saline and peroxide with 3-0 Vicryl. The subcutaneous tissues in the subxiphoid port were also closed using 3-0 Vicryl. The skin of all the ports was infiltrated with 0.25% Marcaine with epinephrine and then we went ahead and closed to the wounds using 3-0 Vicryl for the umbilical fascia, 3-0 Vicryl for the umbilical port site and the remaining port sites was closed using ryne. Sterile dressing was applied. The patient tolerated the procedure well, taken to recovery room in stable condition. The family was informed of intraoperative findings at the end of the procedure. Job#: [id number] KATHERIN
== END | disposition home or self-care (01) ==
LOC: OR 08:11
PROVIDERS: ATTEND Surgery
CPT/HCPCS: 88304; 93005; C1766; J0690; J1100; J1885; J2001; J2250; J2270; J2405

== ENCOUNTER 2020-03-13 11:47 | Emergency (ER) | payer BC, OTHER ==
[~2020-03-13] VITALS: Ht 188 cm; Wt 146.1 kg
[2020-03-13] MEDS ORDERED: TETRACAINE HCL 0.5% OPTH SOLN 4 ML BTL ONE (12:08)
[2020-03-13] MEDS ORDERED: FLUORESCEIN SOD(OPTH) 1 MG STRP ONE (12:09)
[2020-03-13] MEDS ORDERED: TYLENOL # 31 EA PO (12:54)
[2020-03-13] MEDS ORDERED: FLUORESCEIN SOD(OPTH) 1 MG STRP OP ONE (13:00)
[2020-03-13] MEDS ORDERED: TETRACAINE HCL 0.5% OPTH SOLN 4 ML BTL OP ONE (13:00)
== END 2020-03-13 13:17 | disposition home or self-care (01) ==
LOC: FSED 11:51
DX: H57.12 Ocular pain, left eye (principal); S05.02XA Injury of conjunctiva and corneal abrasion without foreign body, left eye, initial encounter; K50.90 Crohn's disease, unspecified, without complications; D84.9 Immunodeficiency, unspecified; E66.9 Obesity, unspecified
CPT/HCPCS: 99284